=== PATIENT | male | born 1945 | race Caucasian/White ===

== ENCOUNTER 2019-02-12 16:45 | Emergency (ER) | payer MEDICARE, SELFPAY ==
[2019-02-12] VITALS (11 sets, daily range): BP systolic 135–185; BP diastolic 77–102; PULSE 74–107; RESP 15–18; TEMP 36.3–36.9; O2SAT 96–100; BMI 25.7
--- NOTE | 2019-02-12 17:23 | ED_ITS ---
Documented by User: BECKA King 02/13/19 19:02 HPI - Fall General: Chief Complaint: Fall Stated Complaint: fall Time Seen by Provider: 02/12/19 17:23 Source: patient Mode of arrival: EMS Limitations: no limitations History of Present Illness: HPI Narrative: pt reports he bent over to pick something up and immediately felt his hip break; states the pain in the hip then caused him to fall and strike his head on an electric wall heater; cannot ambulate on L leg; his only complaint is L hip pain MD complaint: fall Onset (ago): hour(s) Fall from: standing Fall witnessed: no Place fall occurred: home Loss of consciousness: None Prolonged down time: no Symptoms prior to fall: none Context: other (had pain to L hip) Location of injury: pelvis (L hip) Associated symptoms-after fall: Denies abdominal pain, chest pain, headache(s), lightheadedness or neck pain Review of Systems Const: Denies: fever, chills or body aches Eyes: Denies: change in vision or blurry vision Card: Denies: chest pain, palpitations, irregular heart rhythm, lightheadedness, syncope or pre-syncope Resp: Denies: shortness of breath GI: Denies: abdominal pain, nausea, vomiting or diarrhea Musc: Reports: joint pain (L hip); Denies: neck pain, back pain or extremity pain Skin/Breast: Denies: rash Neuro: Denies: headache, numbness in extremities, weakness in extremities, changes in sensation or dizziness PFSH ED PFSH: Statuses (acute, chronic, etc) shown below reflect problem list status as previously entered and may not be historically accurate Social History Smoking and tobacco status: former smoker Physical Exam Const: COMMON NORMALS: no apparent distress, oriented x3 and alert GENERAL APPEARANCE: cooperative HENMT: COMMON NORMALS: normocephalic, head/scalp atraumatic, external ears normal, EAC's normal, TM's normal bilaterally and external nose normal HEAD & SCALP: normal to inspection, normocephalic and atraumatic FACE & SINUS: normal facial exam NOSE: external nose normal EXTERNAL EAR: Yes external ears normal EXTERNAL AUDITORY CANAL: EAC's normal TYMPANIC MEMBRANE: TM's normal bilaterally MOUTH: oral and palatal mucosa normal THROAT: posterior oropharynx normal, tonsils normal and uvula midline Eye: COMMON NORMALS: PERRL and EOMs intact bilaterally PUPIL: Yes PERRL Neck/C-Spine: COMMON NORMALS: full ROM, no lymphadenopathy, supple and no meningeal signs Resp: COMMON NORMALS: normal respiratory effort, no retractions, no use of accessory muscles and clear to auscultation bilaterally AUSCULTATION: clear to auscultation bilaterally Cardio: COMMON NORMALS: regular rate and regular rhythm RATE: regular rate RHYTHM: regular rhythm GI: COMMON NORMALS: normal to inspection, nondistended, normoactive bowel sounds, soft to palpation, non-tender, no hepatosplenomegaly and no masses PALPATION: Yes soft and Yes no hepatosplenomegaly Back/Pelvis: COMMON NORMALS: thoracic and lumbar spine normal to inspection Extremity: LEFT LOWER EXTREMITY: Yes hip joint (dec ROM, leg rotated, TTP; NV intact) Neuro: COMMON NORMALS: oriented x3 SENSORIUM/ORIENTATION: Yes alert MENINGEAL SIGNS: Yes no meningeal signs Skin: NARRATIVE SKIN EXAM: hematoma to L forehead Course Vital Signs: Vital signs: Vital Signs Temperature 98.4 F 02/12/19 22:35 Pulse Rate 105 H 02/12/19 22:35 Respiratory Rate 18 02/12/19 22:35 Blood Pressure 162/93 02/12/19 22:35 Pulse Oximetry 98 02/12/19 22:35 MDM - Fall Lab Data: Labs: Lab Results 02/12/19 02/12/19 Range/Units 17:51 17:51 WBC 14.4 H (4.0-10.0) 10^3/ uL RBC 4.98 (4.1-5.3) 10^6/u L Hgb 15.2 (11.7-16.6) g/dL Hct 45.6 (42.0-52.0) % MCV 91.6 (80-94) fL MCH 30.5 (28.0-34.0) pg MCHC 33.3 (30.0-36.0) g/dL RDW 13.2 (12.1-15.1) % Plt Count 165 (130-400) 10^3/c mm MPV 10.8 H (7.4-10.4) fL Neut % (Auto) 90.4 % Lymph % (Auto) 4.9 % Winston % (Auto) 3.2 % Eos % (Auto) 0.3 % Baso % (Auto) 0.5 % Neut # (Auto) 13.0 H (1.8-7.7) 10^3/u L Lymph # (Auto) 0.7 L (0.8-4.8) 10^3/u L Winston # (Auto) 0.5 (0.2-0.9) 10^3/u L Eos # (Auto) 0.1 (0.0-0.8) 10^3/u L Baso # (Auto) 0.1 (0.0-0.1) 10^3/u L Nucleated RBC % (a uto) 0 % Nucleated RBCs # 0.0 /100WBC Sodium 135 L (136-145) mmol/L Potassium 3.8 (3.5-5.1) mmol/L Chloride 98 (98-107) mmol/L Carbon Dioxide 24 (22-29) mmol/L Anion Gap 16.8 (5-19) BUN 18 (8-23) mg/dL Creatinine 0.7 (0.7-1.2) mg/dL Glucose 179 H (74-106) mg/dL Calcium 9.9 (8.8-10.2) mg/Dl Total Bilirubin 0.4 (0.15-1.2) mg/dL AST 18 (0-40) U/L ALT 10 (0-41) U/L Alkaline Phosphata se 101 (40-130) IU/L Total Protein 7.7 (6.6-8.7) g/dL Albumin 4.5 (3.5-5.2) g/dL Globulin 3.2 (1.3-4.6) g/dL Imaging Data^: CT cervical: Radiologist's impression: [place] [address] CT Scan Report Signed Patient: Lan Madden#: [id number] : 6Acct:[id number] Age/Sex: 73 / MADM Date: 02/12/19 Loc: ER Attending Dr: Ordering Physician: Doreen Montenegro Date of Service: 02/12/19 Procedure(s): CT cervical spin wo con* [id number] Accession Number(s): [id number] cc: Doreen Montenegro~ PROCEDURE INFORMATION: Exam: CT Cervical Spine Without Contrast Exam date and time: 02/12/2019 6:05 PM Age: 73 years old Clinical indication: Neck pain; Additional info: Trauma TECHNIQUE: Imaging protocol: Computed tomography images of the cervical spine without contrast. Total DLP: 679.58 mGy-cm Radiation optimization: All CT scans at this facility use at least one of these dose optimization techniques: automated exposure control; mA and/or kV adjustment per patient size (includes targeted exams where dose is matched to clinical indication); or iterative reconstruction. COMPARISON: No relevant prior studies available. FINDINGS: Vertebrae: No acute fracture. Normal alignment. There are severe diffuse degenerative changes. There is diffuse ankylosis of the facet joints from C3 through C6. Severe disc space narrowing with large osteophytes are noted at C6-C7 and C7-T1. Discs/Spinal canal/Neural foramina: No spinal stenosis. No neural foraminal narrowing. Soft tissues: Unremarkable. Lungs: Lung apices are normal. CT/CT cervical spin wo con* [id number] IMPRESSION: 1. No acute findings. 2. Severe degenerative changes are noted. 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 Radiation Dose CTDIVOL = (mGy): DLP = 679.58 (mGy-cm) Dictated By: Maricarmen Tomlinson 02/12/191913 Signed By: Maricarmen Tomlinson 02/12/191914 CT Head: Radiologist's impression: [address] [address] [address] Scan Report Signed Patient: Lan Madden#: [id number] : 6Acct:[id number] Age/Sex: 73 / MADM Date: 02/12/19 Loc: ER Attending Dr: Ordering Physician: Doreen Montenegro Date of Service: 02/12/19 Procedure(s): CT head wo con* [id number] Accession Number(s): [id number] cc: Doreen Montenegro~ PROCEDURE INFORMATION: Exam: CT Head Without Contrast Exam date and time: 02/12/2019 6:05 PM Age: 73 years old Clinical indication: Injury or trauma; Fall TECHNIQUE: Imaging protocol: Computed tomography of the head without contrast. Total DLP: 1007.7 mGy-cm Radiation optimization: All CT scans at this facility use at least one of these dose optimization techniques: automated exposure control; mA and/or kV adjustment per patient size (includes targeted exams where dose is matched to clinical indication); or iterative reconstruction. COMPARISON: No relevant prior studies available. FINDINGS: Brain: The left temporal and inferior left parietal lobes appears hypoplastic. There is no typical cortical encephalomalacia. There is fluid density in the left temporal fossa that may reflect ex vacuo type changes from old infarct or a arachnoid cyst. There is diffuse volume loss and mild periventricular low-density. Midline shift: There is midline shift to the right measuring 5 mm that appears to be secondary to the probable arachnoid cyst. Ventricles: Normal. No ventriculomegaly. Bones/joints: Unremarkable. No acute fracture. Sinuses: There is mild mucosal thickening in the sinuses. Mastoid air cells: Visualized mastoid air cells are well aerated. Soft tissues: There is a left frontal scalp hematoma. Other findings: There is no acute hemorrhage. No transcortical edema. CT/CT head wo con* [id number] IMPRESSION: 1. Atrophy of the left temporal and inferior left parietal lobes may reflect old infarct or mass effect from adjacent arachnoid cyst. 2. No acute abnormality. Radiation Dose CTDIVOL = (mGy): DLP = 1007.7 (mGy-cm) Dictated By: Maricarmen Tomlinson 02/12/191916 Signed By: Maricarmen Tomlinson 02/12/191917 L hip/pelvis: Radiologist's impression: [address] [address] XRay Report Signed Patient: Lan MaddenMR#: [id number] : 6Acct:[id number] Age/Sex: 73 / MADM Date: 02/12/19 Loc: ER Attending Dr: Ordering Physician: Doreen Montenegro Date of Service: 02/12/19 Procedure(s): XR hip LT 2-3V wo/w pel* [id number] Accession Number(s): [id number] cc: Doreen Montenegro~ PROCEDURE INFORMATION: Exam: XR Left Hip with Pelvis when Performed Exam date and time: 02/12/2019 6:36 PM Age: 73 years old Clinical indication: Injury or trauma; Fall; Initial encounter; Blunt trauma (contusions or hematomas); Left; Prior surgery; Surgery type: Bialteral hip TECHNIQUE: Imaging protocol: XR Left hip with pelvis when performed. Views: 2 or 3 views. COMPARISON: No relevant prior studies available. 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 No hardware loosening. No hardware fracture. There is severe osteopenia. Severe degenerative changes in the lower lumbar spine are noted. There is a satisfactory appearance of the partially imaged right total hip arthroplasty. Soft tissues: Unremarkable. 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 Dictated By: Maricarmen Tomlinson 02/12/191917 Signed By: Maricarmen Tomlinson 02/12/191918 Discharge Plan Discharge Patient Disposition: Home, Self-Care Clinical Impression: Hip dislocation, left Qualifiers: Encounter type: initial encounter Qualified Code(s): S73.005A - Unspecified dislocation of left hip, initial encounter Condition: Stable Prescriptions: New hydrocodone-acetaminophen 5-325 mg tablet 1 tab PO Q4H PRN (Reason: pain) Qty: 14 RF: 0 Discharge Orders: Discharge Order (Routine); Ordered 02/12/19 Ordered By: Doreen Montenegro Referrals: NOT ON FILE,DOCTOR [Family Provider] - Greta Shaikh DO [Primary Care Provider] - Discharge Activity: Use walker/crutches as instructed Patient Instructions: Hip Dislocation (ED) Activity Restrictions/Additional Instructions: USE WALKER AT ALL TIMES. FOLLOW UP WITH ORTHOPEDICS SCHEDULED-CASE MANAGEMENT WILL CALL YOU WITH APPOINTMENT DATE/TIME. Discharge Date/Time: 02/12/19 22:43 Coding Level of Care Code ED Internet Marketing Consultant for Chg Fwd Exam Problem Focused Documented by User: Taj Estes, 02/13/19 04:18 HPI - Fall General: Chief Complaint: Fall Stated Complaint: fall Time Seen by Provider: 02/12/19 17:23 PFSH ED PFSH: Statuses (acute, chronic, etc) shown below reflect problem list status as previously entered and may not be historically accurate Social History Smoking and tobacco status: former smoker Procedures Orthopedic Joint Reduction Joint #1: Time Out Performed: Yes Side: right Joint Reduction Location: shoulder Analgesia: procedural sedation Shoulder Technique Used (if applicable): scapula manipulation Post-reduction neuro exam: intact Post-reduction vascular: intact Post Reduction X-Ray Obtained: Yes Post Reduction X-Ray Results: reduced Splint Applied: Yes Patient Tolerated Procedure: well and no complications Procedural Sedation Indication: fracture/dislocation reduction ASA Class: III Preparation: diagnostic cardiac sonographer applied, pulse oximeter, supplemental O2 applied, reversal agents at bedside, suction/airway equipment at bedside and IV secured Midazolam: IV Midazolam dose (mg): 1 IV Etomidate dose (mg): 15 Patient Tolerated Procedure: well and no complications Complications: none Additional Comments: Reduction achieved, although the patient has noRotator cuff, and the humeral head, which is prosthetic, rides abnormally inside the glenoid. Course Vital Signs: Vital signs: Vital Signs Temperature 98.4 F 02/12/19 22:35 Pulse Rate 105 H 02/12/19 22:35 Respiratory Rate 18 02/12/19 22:35 Blood Pressure 162/93 02/12/19 22:35 Pulse Oximetry 98 02/12/19 22:35 MDM - Fall Lab Data: Labs: Lab Results 02/12/19 02/12/19 Range/Units 17:51 17:51 WBC 14.4 H (4.0-10.0) 10^3/ uL RBC 4.98 (4.1-5.3) 10^6/u L Hgb 15.2 (11.7-16.6) g/dL Hct 45.6 (42.0-52.0) % MCV 91.6 (80-94) fL MCH 30.5 (28.0-34.0) pg MCHC 33.3 (30.0-36.0) g/dL RDW 13.2 (12.1-15.1) % Plt Count 165 (130-400) 10^3/c mm MPV 10.8 H (7.4-10.4) fL Neut % (Auto) 90.4 % Lymph % (Auto) 4.9 % Winston % (Auto) 3.2 % Eos % (Auto) 0.3 % Baso % (Auto) 0.5 % Neut # (Auto) 13.0 H (1.8-7.7) 10^3/u L Lymph # (Auto) 0.7 L (0.8-4.8) 10^3/u L Winston # (Auto) 0.5 (0.2-0.9) 10^3/u L Eos # (Auto) 0.1 (0.0-0.8) 10^3/u L Baso # (Auto) 0.1 (0.0-0.1) 10^3/u L Nucleated RBC % (a uto) 0 % Nucleated RBCs # 0.0 /100WBC Sodium 135 L (136-145) mmol/L Potassium 3.8 (3.5-5.1) mmol/L Chloride 98 (98-107) mmol/L Carbon Dioxide 24 (22-29) mmol/L Anion Gap 16.8 (5-19) BUN 18 (8-23) mg/dL Creatinine 0.7 (0.7-1.2) mg/dL Glucose 179 H (74-106) mg/dL Calcium 9.9 (8.8-10.2) mg/Dl Total Bilirubin 0.4 (0.15-1.2) mg/dL AST 18 (0-40) U/L ALT 10 (0-41) U/L Alkaline Phosphata se 101 (40-130) IU/L Total Protein 7.7 (6.6-8.7) g/dL Albumin 4.5 (3.5-5.2) g/dL Globulin 3.2 (1.3-4.6) g/dL Discharge Plan Discharge Patient Disposition: Home, Self-Care Clinical Impression: Hip dislocation, left Qualifiers: Encounter type: initial encounter Qualified Code(s): S73.005A - Unspecified dislocation of left hip, initial encounter Condition: Stable Prescriptions: New hydrocodone-acetaminophen 5-325 mg tablet 1 tab PO Q4H PRN (Reason: pain) Qty: 14 RF: 0 Discharge Orders: Discharge Order (Routine); Ordered 02/12/19 Ordered By: Doreen Montenegro Referrals: NOT ON FILE,DOCTOR [Family Provider] - Greta Shaikh DO [Primary Care Provider] - Discharge Activity: Use walker/crutches as instructed Patient Instructions: Hip Dislocation (ED) Activity Restrictions/Additional Instructions: USE WALKER AT ALL TIMES. FOLLOW UP WITH ORTHOPEDICS SCHEDULED-CASE MANAGEMENT WILL CALL YOU WITH APPOINTMENT DATE/TIME. Discharge Date/Time: 02/12/19 22:43 Coding Level of Care Code ED Internet Marketing Consultant for Scar Fwjasmine Exam Problem Focused
--- NOTE | 2019-02-12 17:42 | XRR_ITS ---
PROCEDURE INFORMATION: Exam: XR Left Hip with Pelvis when Performed Exam date and time: 02/12/2019 6:36 PM Age: 73 years old Clinical indication: Injury or trauma; Fall; Initial encounter; Blunt trauma (contusions or hematomas); Left; Prior surgery; Surgery type: Bialteral hip TECHNIQUE: Imaging protocol: XR Left hip with pelvis when performed. Views: 2 or 3 views. COMPARISON: No relevant prior studies available. 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 No hardware loosening. No hardware fracture. There is severe osteopenia. Severe degenerative changes in the lower lumbar spine are noted. There is a satisfactory appearance of the partially imaged right total hip arthroplasty. Soft tissues: Unremarkable. 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
--- NOTE | 2019-02-12 17:42 | ECG_ITS ---
Measurements Intervals Convoy Rate: 75 P: 67 IN: 240 QRS: 10 QRSD: 111 T: 32 QT: 379 QTc: 425 SINUS RHYTHM WITH FIRST DEGREE AV BLOCK MODERATE INTRAVENTRICULAR CONDUCTION DELAY [110+ ms QRS DURATION] No previous ECG available for comparison Electronically Signed On 02-13-2019 15:02:37 DAM TENDER ASSISTANT by Kath Nelson M.D. [email or web address]
--- NOTE | 2019-02-12 17:42 | CTR_ITS ---
PROCEDURE INFORMATION: Exam: CT Head Without Contrast Exam date and time: 02/12/2019 6:05 PM Age: 73 years old Clinical indication: Injury or trauma; Fall TECHNIQUE: Imaging protocol: Computed tomography of the head without contrast. Total DLP: 1007.7 mGy-cm Radiation optimization: All CT scans at this facility use at least one of these dose optimization techniques: automated exposure control; mA and/or kV adjustment per patient size (includes targeted exams where dose is matched to clinical indication); or iterative reconstruction. COMPARISON: No relevant prior studies available. FINDINGS: Brain: The left temporal and inferior left parietal lobes appears hypoplastic. There is no typical cortical encephalomalacia. There is fluid density in the left temporal fossa that may reflect ex vacuo type changes from old infarct or a arachnoid cyst. There is diffuse volume loss and mild periventricular low-density. Midline shift: There is midline shift to the right measuring 5 mm that appears to be secondary to the probable arachnoid cyst. Ventricles: Normal. No ventriculomegaly. Bones/joints: Unremarkable. No acute fracture. Sinuses: There is mild mucosal thickening in the sinuses. Mastoid air cells: Visualized mastoid air cells are well aerated. Soft tissues: There is a left frontal scalp hematoma. Other findings: There is no acute hemorrhage. No transcortical edema. CT/CT head wo con* [id number] IMPRESSION: 1. Atrophy of the left temporal and inferior left parietal lobes may reflect old infarct or mass effect from adjacent arachnoid cyst. 2. No acute abnormality. Radiation Dose CTDIVOL = (mGy): DLP = 1007.7 (mGy-cm)
--- NOTE | 2019-02-12 17:42 | CTR_ITS ---
PROCEDURE INFORMATION: Exam: CT Cervical Spine Without Contrast Exam date and time: 02/12/2019 6:05 PM Age: 73 years old Clinical indication: Neck pain; Additional info: Trauma TECHNIQUE: Imaging protocol: Computed tomography images of the cervical spine without contrast. Total DLP: 679.58 mGy-cm Radiation optimization: All CT scans at this facility use at least one of these dose optimization techniques: automated exposure control; mA and/or kV adjustment per patient size (includes targeted exams where dose is matched to clinical indication); or iterative reconstruction. COMPARISON: No relevant prior studies available. FINDINGS: Vertebrae: No acute fracture. Normal alignment. There are severe diffuse degenerative changes. There is diffuse ankylosis of the facet joints from C3 through C6. Severe disc space narrowing with large osteophytes are noted at C6-C7 and C7-T1. Discs/Spinal canal/Neural foramina: No spinal stenosis. No neural foraminal narrowing. Soft tissues: Unremarkable. Lungs: Lung apices are normal. CT/CT cervical spin wo con* [id number] IMPRESSION: 1. No acute findings. 2. Severe degenerative changes are noted. 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 Radiation Dose CTDIVOL = (mGy): DLP = 679.58 (mGy-cm)
[2019-02-12 17:59] LABS: Basophils # 0.1 10^3/uL (0.0-0.1); Basophils % 0.5 %; Eosinophils # 0.1 10^3/uL (0.0-0.8); Eosinophils % 0.3 %; Hematocrit 45.6 % (42.0-52.0); Hemoglobin 15.2 g/dL (11.7-16.6); Lymphocytes # 0.7 10^3/uL (0.8-4.8); Lymphocytes % 4.9 %; Mean Corpuscular HGB Conc 33.3 g/dL (30.0-36.0); Mean Corpuscular Hemoglobin 30.5 pg (28.0-34.0); Mean Corpuscular Volume 91.6 fL (80-94); Mean Platelet Volume 10.8 fL (7.4-10.4); Monocytes # 0.5 10^3/uL (0.2-0.9); Monocytes % 3.2 %; Neutrophils % 90.4 %; Nucleated Red Blood Cells % 0 %; Platelet Count 165 10^3/cmm (130-400); Red Blood Count 4.98 10^6/uL (4.1-5.3); Red Cell Distribution Width 13.2 % (12.1-15.1); White Blood Count 14.4 10^3/uL (4.0-10.0)
[2019-02-12] MEDS: morphine 4 mg/mL SDV 1 mL IVP (18:09)
[2019-02-12] MEDS: ondansetron 2 mg/ML SDV 2 mL 4 MG IVP (18:09)
[2019-02-12 18:25] LABS: Alanine Aminotransferase 10 U/L (0-41); Albumin Level 4.5 g/dL (3.5-5.2); Alkaline Phosphatase 101 IU/L (40-130); Anion Gap 16.8 (5-19); Aspartate Amino Transferase 18 U/L (0-40); Blood Urea Nitrogen 18 mg/dL (8-23); Calcium 9.9 mg/Dl (8.8-10.2); Carbon Dioxide 24 mmol/L (22-29); Chloride 98 mmol/L (98-107); Globulin 3.2 g/dL (1.3-4.6); Glucose 179 mg/dL (74-106); Potassium 3.8 mmol/L (3.5-5.1); Sodium 135 mmol/L (136-145); Total Bilirubin 0.4 mg/dL (0.15-1.2); Total Protein 7.7 g/dL (6.6-8.7)
[2019-02-12] MEDS: sodium chloride 0.9% 1,000 ML 999 ML IV (19:55)
--- NOTE | 2019-02-12 20:06 | XRR_ITS ---
PROCEDURE INFORMATION: Exam: XR Left Hip with Pelvis when Performed Exam date and time: 02/12/2019 8:33 PM Age: 73 years old Clinical indication: Other: Post reduction; Prior surgery; Additional info: Post reduc TECHNIQUE: Imaging protocol: XR Left hip with pelvis when performed. Views: 1 view. COMPARISON: CR XR hip LT 2-3V wo/w pel* [id number] 02/12/2019 6:16 PM FINDINGS: Bones/joints: There is satisfactory reduction of the left total hip dislocation. No acute fracture. No hardware loosening. Severe degenerative changes are noted in the spine and sacroiliac joints. There is osteopenia. Soft tissues: Unremarkable. XR/XR hip LT 1V wo/w pel [id number] IMPRESSION: There is satisfactory reduction of the left total hip dislocation.
[2019-02-12] MEDS: midazolam 1 mg/mL INJ 2 mL 2 MG IVP (20:15)
--- NOTE | 2019-02-12 20:20 | PC.NURSE ---
Patient sedated and providers working to reduce left up. Vital signs 148/104, HR 102, RR 18, O2 98
--- NOTE | 2019-02-12 20:32 | PC.NURSE ---
Left hip successfully reduced, with conformation of xray. Patient continues in sedated state.
--- NOTE | 2019-02-12 21:43 | W.ED.FALL ---
HPI - Fall General: Chief Complaint: Fall Stated Complaint: fall Time Seen by Provider: 02/12/19 17:23 Source: patient Mode of arrival: EMS History of Present Illness: Place fall occurred: home Context: other (had pain to L hip) PFSH ED PFSH: Statuses (acute, chronic, etc) shown below reflect problem list status as previously entered and may not be historically accurate Social History Smoking and tobacco status: former smoker Procedures Orthopedic Joint Reduction Joint #1: Time Out Performed: Yes Side: left Joint Reduction Location: hip (prosthetic) Analgesia: procedural sedation Technique used: traction/counter-traction and direct manipulation Post-reduction neuro exam: intact Post Reduction X-Ray Obtained: Yes (reduction confirmed) Patient Tolerated Procedure: well and no complications Procedural Sedation Indication: fracture/dislocation reduction (l hip) ASA Class: I Preparation: playground monitor applied, pulse oximeter, supplemental O2 applied, reversal agents at bedside, suction/airway equipment at bedside and IV secured Midazolam: IV Midazolam dose (mg): 2 IV Etomidate dose (mg): 30 Patient Tolerated Procedure: well and no complications Course Vital Signs: Vital signs: Vital Signs Temperature 98.4 F 02/12/19 22:35 Pulse Rate 105 H 02/12/19 22:35 Respiratory Rate 18 02/12/19 22:35 Blood Pressure 162/93 02/12/19 22:35 Pulse Oximetry 98 02/12/19 22:35 MDM - Fall Lab Data: Labs: Lab Results 02/12/19 02/12/19 Range/Units 17:51 17:51 WBC 14.4 H (4.0-10.0) 10^3/ uL RBC 4.98 (4.1-5.3) 10^6/u L Hgb 15.2 (11.7-16.6) g/dL Hct 45.6 (42.0-52.0) % MCV 91.6 (80-94) fL MCH 30.5 (28.0-34.0) pg MCHC 33.3 (30.0-36.0) g/dL RDW 13.2 (12.1-15.1) % Plt Count 165 (130-400) 10^3/c mm MPV 10.8 H (7.4-10.4) fL Neut % (Auto) 90.4 % Lymph % (Auto) 4.9 % Gilliam % (Auto) 3.2 % Eos % (Auto) 0.3 % Baso % (Auto) 0.5 % Neut # (Auto) 13.0 H (1.8-7.7) 10^3/u L Lymph # (Auto) 0.7 L (0.8-4.8) 10^3/u L Gilliam # (Auto) 0.5 (0.2-0.9) 10^3/u L Eos # (Auto) 0.1 (0.0-0.8) 10^3/u L Baso # (Auto) 0.1 (0.0-0.1) 10^3/u L Nucleated RBC % (a uto) 0 % Nucleated RBCs # 0.0 /100WBC Sodium 135 L (136-145) mmol/L Potassium 3.8 (3.5-5.1) mmol/L Chloride 98 (98-107) mmol/L Carbon Dioxide 24 (22-29) mmol/L Anion Gap 16.8 (5-19) BUN 18 (8-23) mg/dL Creatinine 0.7 (0.7-1.2) mg/dL Glucose 179 H (74-106) mg/dL Calcium 9.9 (8.8-10.2) mg/Dl Total Bilirubin 0.4 (0.15-1.2) mg/dL AST 18 (0-40) U/L ALT 10 (0-41) U/L Alkaline Phosphata se 101 (40-130) IU/L Total Protein 7.7 (6.6-8.7) g/dL Albumin 4.5 (3.5-5.2) g/dL Globulin 3.2 (1.3-4.6) g/dL Discharge Plan Discharge Patient Disposition: Home, Self-Care Clinical Impression: Hip dislocation, left Qualifiers: Encounter type: initial encounter Qualified Code(s): S73.005A - Unspecified dislocation of left hip, initial encounter Condition: Stable Prescriptions: New hydrocodone-acetaminophen 5-325 mg tablet 1 tab PO Q4H PRN (Reason: pain) Qty: 14 RF: 0 Discharge Orders: Discharge Order (Routine); Ordered 02/12/19 Ordered By: Doreen Montenegro Referrals: NOT ON FILE,DOCTOR [Family Provider] - Greta Shaikh DO [Primary Care Provider] - Discharge Activity: Use walker/crutches as instructed Patient Instructions: Hip Dislocation (ED) Activity Restrictions/Additional Instructions: USE WALKER AT ALL TIMES. FOLLOW UP WITH ORTHOPEDICS SCHEDULED-CASE MANAGEMENT WILL CALL YOU WITH APPOINTMENT DATE/TIME. Discharge Date/Time: 02/12/19 22:43 Coding Level of Care Code ED Sales Agent Protective Service for Scar Alexis
--- NOTE | 2019-02-12 21:47 | PC.NURSE ---
Pt ambulated in the room with PA present -Pt tolerated well
[2019-02-12] MEDS: HYDROcodone-acetaminophen 5-325 mg Tablet 3 TAB PO (22:30)
--- NOTE | 2019-02-13 18:32 | ED_ITS ---
HPI - Fall General: Chief Complaint: Fall Stated Complaint: fall Time Seen by Provider: 02/12/19 17:23 Source: patient Mode of arrival: EMS History of Present Illness: HPI Narrative: Patient is a 73-year-old male presents to ED today with complaints of left hip pain; patient states he was bending over to pick something up and immediately felt pain in his left hip causing him to fall and strike his head on an electric wall heater; no LOC; has not complained of neck or back pain; has not been able to ambulate since the fall; patient with history of bilateral total hip replacements complaint: fall Onset (ago): hour(s) Fall from: standing Place fall occurred: home Loss of consciousness: None Prolonged down time: no Symptoms prior to fall: none Context: other (had pain to L hip) Location of injury: pelvis Associated symptoms-after fall: Reports no associated symptoms; Denies abdominal pain, chest pain, headache(s), lightheadedness or neck pain Review of Systems Const: Denies: fever or chills Eyes: Denies: change in vision or blurry vision Card: Denies: chest pain, palpitations, irregular heart rhythm, lightheadedness, syncope or shortness of breath on exertion Resp: Denies: shortness of breath, productive cough or pain on inspiration GI: Denies: abdominal pain, nausea, vomiting, heartburn/indigestion or diarrhea : Denies: difficulty urinating or painful urination Musc: Reports: joint pain (L hip); Denies: neck pain or back pain Skin/Breast: Denies: rash Neuro: Denies: headache, numbness in extremities or weakness in extremities PFSH ED PFSH: Statuses (acute, chronic, etc) shown below reflect problem list status as previously entered and may not be historically accurate Social History Smoking and tobacco status: former smoker Physical Exam Const: COMMON NORMALS: no apparent distress, oriented x3 and alert GENERAL APPEARANCE: cooperative HENMT: COMMON NORMALS: normocephalic, head/scalp atraumatic, external ears normal, EAC's normal, TM's normal bilaterally and external nose normal HEAD & SCALP: normal to inspection, normocephalic and atraumatic FACE & SINUS: normal facial exam NOSE: external nose normal EXTERNAL EAR: Yes external ears normal EXTERNAL AUDITORY CANAL: EAC's normal TYMPANIC MEMBRANE: TM's normal bilaterally MOUTH: oral and palatal mucosa normal THROAT: posterior oropharynx normal, tonsils normal and uvula midline Eye: COMMON NORMALS: PERRL and EOMs intact bilaterally PUPIL: Yes PERRL Neck/C-Spine: COMMON NORMALS: full ROM, no lymphadenopathy, supple and no meningeal signs Resp: COMMON NORMALS: normal respiratory effort, no retractions, no use of accessory muscles and clear to auscultation bilaterally AUSCULTATION: clear to auscultation bilaterally Cardio: COMMON NORMALS: regular rate and regular rhythm RATE: regular rate RHYTHM: regular rhythm GI: COMMON NORMALS: normal to inspection, nondistended, normoactive bowel sounds, soft to palpation, non-tender, no hepatosplenomegaly and no masses PALPATION: Yes soft and Yes no hepatosplenomegaly Back/Pelvis: COMMON NORMALS: thoracic and lumbar spine normal to inspection Extremity: LEFT LOWER EXTREMITY: Yes hip joint (TTP; cannot raise leg off table; leg is rotated; NV intact ) Neuro: COMMON NORMALS: oriented x3 SENSORIUM/ORIENTATION: Yes alert MENINGEAL SIGNS: Yes no meningeal signs Course Vital Signs: Vital signs: Vital Signs Temperature 98.4 F 02/12/19 22:35 Pulse Rate 105 H 02/12/19 22:35 Respiratory Rate 18 02/12/19 22:35 Blood Pressure 162/93 02/12/19 22:35 Pulse Oximetry 98 02/12/19 22:35 MDM - Fall MDM Narrative: Medical decision making narrative: please see Dr. Estes's note for procedure/sedation; pt able to ambulate with walker afterwards; feels comfortable going home; will have him follow up with orthopedics Lab Data: Labs: Lab Results 02/12/19 02/12/19 Range/Units 17:51 17:51 WBC 14.4 H (4.0-10.0) 10^3/ uL RBC 4.98 (4.1-5.3) 10^6/u L Hgb 15.2 (11.7-16.6) g/dL Hct 45.6 (42.0-52.0) % MCV 91.6 (80-94) fL MCH 30.5 (28.0-34.0) pg MCHC 33.3 (30.0-36.0) g/dL RDW 13.2 (12.1-15.1) % Plt Count 165 (130-400) 10^3/c mm MPV 10.8 H (7.4-10.4) fL Neut % (Auto) 90.4 % Lymph % (Auto) 4.9 % Saunders % (Auto) 3.2 % Eos % (Auto) 0.3 % Baso % (Auto) 0.5 % Neut # (Auto) 13.0 H (1.8-7.7) 10^3/u L Lymph # (Auto) 0.7 L (0.8-4.8) 10^3/u L Saunders # (Auto) 0.5 (0.2-0.9) 10^3/u L Eos # (Auto) 0.1 (0.0-0.8) 10^3/u L Baso # (Auto) 0.1 (0.0-0.1) 10^3/u L Nucleated RBC % (a uto) 0 % Nucleated RBCs # 0.0 /100WBC Sodium 135 L (136-145) mmol/L Potassium 3.8 (3.5-5.1) mmol/L Chloride 98 (98-107) mmol/L Carbon Dioxide 24 (22-29) mmol/L Anion Gap 16.8 (5-19) BUN 18 (8-23) mg/dL Creatinine 0.7 (0.7-1.2) mg/dL Glucose 179 H (74-106) mg/dL Calcium 9.9 (8.8-10.2) mg/Dl Total Bilirubin 0.4 (0.15-1.2) mg/dL AST 18 (0-40) U/L ALT 10 (0-41) U/L Alkaline Phosphata se 101 (40-130) IU/L Total Protein 7.7 (6.6-8.7) g/dL Albumin 4.5 (3.5-5.2) g/dL Globulin 3.2 (1.3-4.6) g/dL Imaging Data^: L hip: Radiologist's impression: [address] [place] [address] XRay Report Signed Patient: Lan Madden MR#: [id number] : 1945 Acct:[id number] Age/Sex: 73 / M ADM Date: 02/12/19 Loc: ER Attending Dr: Ordering Physician: Doreen Montenegro Date of Service: 02/12/19 Procedure(s): XR hip LT 2-3V wo/w pel* [id number] Accession Number(s): [id number] cc: Doreen Montenegro PROCEDURE INFORMATION: Exam: XR Left Hip with Pelvis when Performed Exam date and time: 02/12/2019 6:36 PM Age: 73 years old Clinical indication: Injury or trauma; Fall; Initial encounter; Blunt trauma (contusions or hematomas); Left; Prior surgery; Surgery type: Bialteral hip TECHNIQUE: Imaging protocol: XR Left hip with pelvis when performed. Views: 2 or 3 views. COMPARISON: No relevant prior studies available. 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 No hardware loosening. No hardware fracture. There is severe osteopenia. Severe degenerative changes in the lower lumbar spine are noted. There is a satisfactory appearance of the partially imaged right total hip arthroplasty. Soft tissues: Unremarkable. XR/XR hip LT 2-3V wo/w pel* [id number] IMPRESSION: There is a dislocation of the left total hip arthroplasty. Dictated By: Maricarmen Tomlinson 02/12/191917 Signed By: Maricarmen Tomlinson 02/12/191918 L hip post reduction: Radiologist's impression: [place] [address] XRay Report Signed Patient: Lan Madden MR#: [id number] : 1945 Acct:[id number] Age/Sex: 73 / M ADM Date: 02/12/19 Loc: ER Attending Dr: Ordering Physician: Taj Estes DO Date of Service: 02/12/19 Procedure(s): XR hip LT 1V wo/w pel [id number] Accession Number(s): [id number] cc: Taj Estes DO PROCEDURE INFORMATION: Exam: XR Left Hip with Pelvis when Performed Exam date and time: 02/12/2019 8:33 PM Age: 73 years old Clinical indication: Other: Post reduction; Prior surgery; Additional info: Post reduc TECHNIQUE: Imaging protocol: XR Left hip with pelvis when performed. Views: 1 view. COMPARISON: CR XR hip LT 2-3V wo/w pel* [id number] 02/12/2019 6:16 PM FINDINGS: Bones/joints: There is satisfactory reduction of the left total hip dislocation. No acute fracture. No hardware loosening. Severe degenerative changes are noted in the spine and sacroiliac joints. There is osteopenia. Soft tissues: Unremarkable. XR/XR hip LT 1V wo/w pel [id number] IMPRESSION: There is satisfactory reduction of the left total hip dislocation. Dictated By: Maricarmen Tomlinson 02/12/192037 Signed By: Maricarmen Tomlinson 02/12/192038 Discharge Plan Discharge Patient Disposition: Home, Self-Care Clinical Impression: Hip dislocation, left Qualifiers: Encounter type: initial encounter Qualified Code(s): S73.005A - Unspecified dislocation of left hip, initial encounter Condition: Stable Prescriptions: New hydrocodone-acetaminophen 5-325 mg tablet 1 tab PO Q4H PRN (Reason: pain) Qty: 14 RF: 0 Discharge Orders: Discharge Order (Routine); Ordered 02/12/19 Ordered By: Doreen Montenegro Referrals: NOT ON FILE,DOCTOR [Family Provider] - Greta Shaikh DO [Primary Care Provider] - Discharge Activity: Use walker/crutches as instructed Patient Instructions: Hip Dislocation (ED) Activity Restrictions/Additional Instructions: USE WALKER AT ALL TIMES. FOLLOW UP WITH ORTHOPEDICS SCHEDULED-CASE MANAGEMENT WILL CALL YOU WITH APPOINTMENT DATE/TIME. Discharge Date/Time: 02/12/19 22:43 Coding Level of Care Code ED Dimensional Integration Engineer for Scar Alexis
--- NOTE | 2019-02-15 13:36 | DCPLANNER ---
wellness spa manager had message to schedule a follow up appointment for patient with ortho. wellness spa manager called the ortho clinic, spoke with Pat, gave clinic patients information. wellness spa manager was told that patients information would be printed and reviewed. Clinic will call keycase assembler and patient with appointment information.
--- NOTE | 2019-02-16 10:51 | DCPLANNER ---
Tonia from [facility] called case hardener stating that the clinic has tried to reach patient concerning follow up appointment. government program manager tried to call patient at [phone] no one answered and was not able to leave a voicemail on this line.
--- NOTE | 2019-02-18 10:05 | DCPLANNER ---
treasury manager spoke with Pat at [facility], was told that patient is to follow up with the provider that performed his original surgery. Clinic will call patient and inform patient of this. Both family caseworker and Pat from [facility] has attempted to contact this patient regarding his follow up and have not been able to speak with patient or leave a voicemail for patient at this time.
== END 2019-02-12 22:43 | disposition home or self-care (01) ==
PROVIDERS: Physician Assistant; Emergency Provider Emergency Medicine; PCP Family Medicine
DX: S73.005A Unspecified dislocation of left hip, initial encounter (principal); X50.1XXA Overexertion from prolonged static or awkward postures, initial encounter; Y92.009 Unspecified place in unspecified non-institutional (private) residence as the place of occurrence of the external cause; Z87.891 Personal history of nicotine dependence; Z96.643 Presence of artificial hip joint, bilateral
CPT/HCPCS: 27250; 36415; 70450; 72125; 73501; 73502; 80053; 85025; 93005; 96360; 96374; 99282; J2250; J2270; J2405; J3490; J7030

== ENCOUNTER 2019-08-13 13:41 | Emergency (ER) | payer MEDICARE, SELFPAY ==
[2019-08-13] VITALS (7 sets, daily range): BP systolic 118–151; BP diastolic 64–83; PULSE 63–74; RESP 18–23; TEMP 36.4–36.9; O2SAT 96–100; BMI 28.2
--- NOTE | 2019-08-13 13:45 | XR_ITS ---
WS: [id number] PELVIS AND LEFT HIP HISTORY: PAIN INCLUDE PELVIS COMPARISON: 02/12/2019 LEFT hip: Prior LEFT hip arthroplasty. Acute hip prosthesis dislocation. LEFT femoral head prosthesis is posterior with respect to the acetabular component. Femoral head prosthesis is superiorly positio [place] with respect to the central acetabular prosthetic component. Prior RIGHT hip arthroplasty. No acute fractures. Osteopenia. XR/XR hip LT 2-3V wo/w pel* [id number] IMPRESSION: 1. LEFT femoral hip prosthesis dislocation superiorly and posteriorly. 2. No acute fractures.
--- NOTE | 2019-08-13 14:14 | ED_ITS ---
HPI - Extremity Problem General: Chief complaint: Extremity Injury, Lower Stated complaint: L HIP DISLOCATED Time Seen by Provider: 08/13/19 13:42 Source: patient and EMS Mode of arrival: EMS Limitations: no limitations History of Present Illness: HPI Narrative: Lan is a nice 74-year-old male who comes in complaining of left hip pain. He believes he is dislocated his hip. The patient was out working in his yard mowing when he twisted and flexed forward when he felt his hip give out. He denies any numbness or weakness down his leg but does have pain in the right hip. Patient denies any head injury, falls or other injuries from this incident at home. Patient has no other complaints or concerns at this time. Patient has dislocated this hip before the last time he thinks was in February. Associated symptoms: Deny chest pain, fever(s) or rash Review of Systems 2 Const: Denies: fever(s), chills, body aches, fatigue, malaise or diaphoresis Eyes: Denies: change in vision, blurry vision, blind spots, photophobia, eye discharge or eye redness ENMT: Denies: throat pain, odynophagia, hoarseness, swelling of lips/tongue, oral sores, ear or mastoid pain, ear discharge, change in hearing or nasal discharge Card: Denies: chest pain, palpitations, irregular heart rhythm, edema, lightheadedness, syncope, pre-syncope, dyspnea on exertion or orthopnea Resp: Denies: dyspnea, productive cough, non-productive cough, wheezing, hemoptysis or chest congestion GI: Denies: abdominal pain, nausea, vomiting, hematemesis, coffee ground emesis, heartburn, diarrhea, constipation, GI cramping, hematochezia or melena : Denies: flank pain, dysuria, urinary frequency, urinary urgency or hematu siddhartha Musc: Reports: joint pain; Denies: neck pain, back pain, extremity pain, extremity swelling, joint swelling, joint redness, joint warmth or joint stiffness Skin/Breast: Denies: rash, pruritus, erythema, skin tenderness or jaundice Neuro: Denies: headache(s), numbness in extremities, weakness in extremities, sensory changes, lack of coordination, difficulty walking, dizziness, vertigo, confusion, Slurred speech present or seizure-like activity Kartik/Lymph: Denies: easy bruising, easy bleeding, petechiae, purpura or enlarged lymph nodes All/Imm: Denies: urticaria, throat swelling, tongue swelling, facial swelling or acute wheezing PFSH ED PFSH: Medical History No pertinent past medical history Surgical History History of left hip replacement Social History Smoking and tobacco status: former smoker Physical Exam Const: COMMON NORMALS: no acute distress, patient oriented x3, no limitations, healthy appearing and well nourished GENERAL APPEARANCE: cooperative, well kempt and well developed HENMT: COMMON NORMALS: normocephalic, atraumatic, external ears normal, EAC's normal and Normal external nose present HEAD & SCALP: normal to inspection, normocephalic and atraumatic FACE & SINUS: normal facial exam and face symmetric NOSE: Normal external nose present and Normal nares present EXTERNAL EAR: Yes external ears normal EXTERNAL AUDITORY CANAL: EAC's normal MOUTH: Normal oral and palatal mucosa present, lip normal and tongue normal Eye: COMMON NORMALS: Equal, round and reactive pupils present and conjunctivae normal GENERAL EYE: appearance normal, both eyes and all related structures ALIGNMENT: Yes alignment normal PERIORBITAL: periorbital findings normal EYELID: eyelids normal CONJUNCTIVA: Yes conjunctivae normal SCLERA: sclerae normal PUPIL: Yes Equal, round and reactive pupils present Neck/C-Spine: COMMON NORMALS: full ROM, no lymphadenopathy, supple, no meningeal signs and no JVD GENERAL: Yes normal visual inspection and Yes trachea midline Chest: COMMONS NORMALS: normal inspection of the chest and normal palpation of entire chest wall Resp: COMMON NORMALS: normal respiratory effort, No retractions and No use of accessory muscles EFFORT & INSPECTION: Yes able to speak in complete sentences and Yes symmetric chest movement AUSCULTATION: no crackles, no rales, no rhonchi and no wheezes Cardio: COMMON NORMALS: no JVD, regular rate, regular rhythm, S1 normal heart sound present and S2 normal heart sound present RATE: regular rate RHYTHM: regular rhythm HEART SOUNDS: S1 normal heart sound present, S2 normal heart sound present, no click, no gallops, no murmurs, no rubs and abnormal split S2 GI: COMMON NORMALS: Soft to palpation and No hepatosplenomegaly present PALPATION: Yes Soft to palpation, No Tenderness to palpation present (GI), No Guarding due to palpation present (GI), No Rigid due to palpation, Yes No hepatosplenomegaly present, No Hernia present, No Palpable mass present and No Pulsatile mass present : COMMON NORMALS: Yes no CVA tenderness BLADDER/KIDNEY EXAM: Yes no CVA tenderness Back/Pelvis: COMMON NORMALS: no CVA tenderness, thoracic and lumbar spine normal to inspection, no thoracic nor lumbar tenderness and thoraco-lumbar ROM normal Extremity: NARRATIVE EXTREMITY EXAM: Findings consistent with left hip dislocation. No distal numbness, tingling or weakness. Neurovascularly intact distal to this. Neuro: COMMON NORMALS: patient oriented x3, CN's II-XII intact bilaterally, moves all extremities, no focal motor deficits and no sensory deficits noted MENINGEAL SIGNS: Yes no meningeal signs SPEECH: speech normal Psych: APPEARANCE: Yes well kempt Skin: COMMON NORMALS: no rashes or lesions noted, turgor normal, no jaundice, no petechiae and no mottling GENERAL SKIN EXAM: no rashes or lesions noted and turgor normal Procedures Orthopedic Joint Reduction Joint #1: Time Out Performed: Yes Side: left Joint Reduction Location: hip Analgesia: procedural sedation Technique used: traction/counter-traction Post-reduction neuro exam: intact Post-reduction vascular: intact Post Reduction X-Ray Obtained: Yes Post Reduction X-Ray Results: reduced Patient Tolerated Procedure: well Procedural Sedation Indication: fracture/dislocation reduction ASA Class: II Preparation: nuclear monitoring technician applied, pulse oximeter, supplemental O2 applied, suction/airway equipment at bedside and IV secured IV Propofol dose (mg): 150 Patient Tolerated Procedure: well Complications: Respiratory Depression-Repositioning Required Interventions: airway repositioned and assist by BVM Course Vital Signs: Vital signs: Vital Signs Temperature 97.6 F 08/13/19 13:43 Pulse Rate 68 08/13/19 15:04 Respiratory Rate 23 H 08/13/19 15:04 Blood Pressure 151/81 08/13/19 15:04 Pulse Oximetry 96 08/13/19 14:15 MDM - Extremity (Nontraumatic) MDM Narrative: Medical decision making narrative: Lan is a nice 74-year-old male who comes in after he dislocated his prosthetic hip. He has been reset with good alignment no evidence of fracture. Patient is feeling better and ready to go home. He believes the doctor that first placed his hip is no longer in practice so he agrees to follow-up with the orthopedist here on an outpatient basis. Patient is neurovascularly intact and has no pain after reduction. Imaging Data^: Left Hip: My impression: Dislocation superiorly and posteriorly Left hip post Reduction: My impression: Adequate reduction with no evidence of fracture. Discharge Plan Discharge Patient Disposition: Home, Self-Care Clinical Impression: Dislocation, hip Qualifiers: Encounter type: initial encounter Laterality: left Qualified Code(s): S73.005A - Unspecified dislocation of left hip, initial encounter Condition: Stable Prescriptions: No Action hydrocodone-acetaminophen 5-325 mg tablet 1 tab PO Q4H PRN (Reason: pain) Qty: 14 RF: 0 Discharge Orders: Discharge Order (Routine); Ordered 08/13/19 Ordered By: Lou Sparks Referrals: NOT ON FILE,DOCTOR [Family Provider] - Jaya Mayen MD [Physician] - 1-3 days Greta Shaikh DO [Primary Care Provider] - Discharge Diet: Advance as tolerated Discharge Activity: Use walker/crutches as instructed Patient Instructions: Hip Dislocation (ED) Activity Restrictions/Additional Instructions: Please return to the ER immediately for any of the signs or symptoms listed on your discharge instruction sheets, worsening/changing of your symptoms, you are not getting better as quickly as expected, or for ANY other cause or concerns. Coding Level of Care Code ED Horizontal Resaw Operator for Scar Alexis Exam Comprehensive
[2019-08-13] MEDS: ondansetron 2 mg/ML SDV 2 mL 4 MG IVP (15:04)
[2019-08-13] MEDS: sodium chloride 0.9% 1,000 ML 150 ML IV (15:04)
[2019-08-13] MEDS: morphine 4 mg/mL SDV 1 mL IVP (15:04)
--- NOTE | 2019-08-13 15:04 | XR_ITS ---
WS: [id number] HIP WITH PELVIS LEFT TECHNIQUE: 3 views of the left hip with pelvis CLINICAL INFORMATION: Post reduction COMPARISON: September 09, 2019 FINDINGS: Left ALEX appears in normal position postreduction. No evidence of hardware loosening. Osteopenia. No visualized fractures. XR/XR hip LT 2-3V wo/w pel* [id number] IMPRESSION: Normal alignment ALEX post reduction
[2019-08-13] MEDS: propofol 10 mg/mL SDV 20 mL 200 MG IVP (15:06)
--- NOTE | 2019-08-16 13:34 | DCPLANNER ---
manager salt had message to schedule a follow up appointment for patient with ortho. manager salt called the ortho clinic, spoke with Pat, gave clinic patients information. manager salt was told that patients information would be printed and reviewed. Clinic will call patient with appointment information.
--- NOTE | 2019-08-17 15:07 | DCPLANNER ---
Patient has a follow up appointment scheduled for Saturday, August 24, 2019 at 10:[address] Mayen. Clinic will call patient with appointment information.
--- NOTE | 2019-08-25 15:17 | DCPLANNER ---
Patient did not attend appointment scheduled for 08.24.19 with ortho.
== END 2019-08-13 16:16 | disposition home or self-care (01) ==
LOC: ER 16:01
PROVIDERS: Emergency Provider Emergency Medicine; PCP Family Medicine
DX: S73.005A Unspecified dislocation of left hip, initial encounter (principal); X50.1XXA Overexertion from prolonged static or awkward postures, initial encounter; Z87.891 Personal history of nicotine dependence
CPT/HCPCS: 12345; 27265; 73502; 96361; 96375; 99283; 99284; J2270; J2405; J2704; J7030